=== PATIENT | female | born 1995 | race Caucasian/White ===

== ENCOUNTER 2017-01-05 17:03 | Emergency (ER) | payer BC, OTHER ==
[~2017-01-05] VITALS: Ht 157.5 cm; Wt 58.8 kg
[2017-01-05 17:10] VITALS: TEMP 36.7; Ht 157.5 cm; Wt 58.8 kg
[2017-01-05 17:20] VITALS: O2SAT 99
[2017-01-05] MEDS ORDERED: ACETAMINOPHEN 500 MG TAB PO STA (17:49)
[2017-01-05] MEDS ORDERED: ALBINS/ INH (17:56)
[2017-01-05] MEDS ORDERED: MONT1TAB3 PO (17:56)
[2017-01-05] MEDS ORDERED: SYMIN/8045 INH (17:56)
[2017-01-05] MEDS ORDERED: CHOL1000 PO (17:56)
[2017-01-05] MEDS ORDERED: MULT-506 PO (17:56)
[2017-01-05] MEDS ORDERED: VNTHFA/IN INH (17:56)
[2017-01-05] MEDS ORDERED: LORA10TA51 PO (17:56)
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
[2017-01-05 18:21] LABS: URINE APPEARANCE CLEAR (CLEAR); URINE BILIRUBIN NEG (NEG); URINE COLOR YELLOW; URINE NITRITE NEG (NEG); URINE PH 6.5 (4.5-7.5); URINE SPECIFIC GRAVITY 1.013 (1.000-1.030); UROBILINOGEN NEG (NEG)
[2017-01-05 18:29] LABS: MANUAL MICROSCOPIC REQUIRED? NO; REVIEW REQ? NO
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
--- NOTE | 2017-01-05 19:52 | DIAGNOSTIC IMAGING REPORT ---
LEFT KNEE 3 VIEWS HISTORY: L knee pain COMPARISON: None. FINDINGS: There is no fracture or dislocation. Soft tissues are unremarkable. No radiopaque foreign bodies. No knee effusion. IMPRESSION: No fractures. Electronically signed by: Charlie Ortiz M.D. 01/05/2017 7:51 PM Dictated Date/Time: 01/05/2017 7:43 PM
[2017-01-05 20:31] VITALS: BP 132/88
[2017-01-05 20:36] VITALS: PULSE 104; O2SAT 99
== END 2017-01-05 20:42 | disposition home or self-care (01) ==
LOC: EDBD 17:03 → C.EDD 17:07 → C.EDC 20:42
DX: Z04.3 Encounter for examination and observation following other accident (principal); V03.19XA Pedestrian with other conveyance injured in collision with car, pick-up truck or van in traffic accident, initial encounter